=== PATIENT | male | born 1955 | race Caucasian/White ===

== ENCOUNTER 2020-01-20 06:54 | Day surgery (SDC) | payer MEDICARE, OTHER ==
[2020-01-20] MEDS ORDERED: Lidocaine 1% 6 ML ONE (06:58)
[2020-01-20] MEDS ORDERED: Lactated Ringers 1,000 ML ONE (06:58)
[2020-01-20] MEDS ORDERED: Propofol 200 MG/20 ML SDV ONE (06:59)
[2020-01-20] MEDS ORDERED: fentaNYL 100 MCG/2 ML SDV ONE (06:59)
[2020-01-20] MEDS ORDERED: Lactated Ringers 1,000 ML IV SCH (07:00)
[2020-01-20] MEDS ORDERED: Lidocaine 1%/Sod Bicarbonate in NS 8.4% 1 ML Syringe IDERM PRN (07:00)
[2020-01-20] MEDS ORDERED: Sodium Chloride 0.9% 10 ML Syringe FLUSH PRN (07:00)
--- NOTE | 2020-01-20 07:19 | PCM.PREANE ---
Preanesthetic Assessment - Anesthesia/Transfusion/Family Hx Anesthesia History: Prior Anesthesia Without Reaction Family History of Anesthesia Reaction: No Transfusion History: No Prior Transfusion(s) Intubation History: Unknown - Review of Systems General: No Symptoms Pulmonary: No Symptoms (Smoker: less than 1ppd for 5 years. Quit: 1979) Cardiovascular: No Symptoms Gastrointestinal: No Symptoms Neurological: No Symptoms Other: Reports: None, Easy Bruising - Physical Assessment NPO Status Date: 01/20/20 NPO Status Time: 04:00 Vital Signs: HR: 57 B/P: 130/65 Sat: 97% Resp: 16 Temp: 98 Height: 1.91 m Weight: 93.894 kg ASA Class: 2 Mental Status: Alert & Oriented x3 Airway Class: Mallampati = 2 Dentition: Reports: Normal Dentition, Somers(s), Caries Thyro-Mental Finger Breadths: 3 Mouth Opening Finger Breadths: 3 ROM/Head Extension: Full Lungs: Clear to Auscultation, Normal Respiratory Effort Cardiovascular: No Murmurs, Irregular Rhythm - Lab Values: All labs reviewed and noted and within acceptable ranges to proceed with scheduled procedure. - Imaging/EKG Impressions: EKG: SB rate=54, PVC's, Borderline LAD. - Allergies Allergies/Adverse Reactions: Allergies Allergy/AdvReac Type Severity Reaction Status Date / Time No Known Allergies Allergy Verified 01/19/20 14:53 - Anesthesia Plan Pre-Op Medication Ordered: None - Acknowledgements Anesthesia Type Planned: MAC Pt an Appropriate Candidate for the Planned Anesthesia: Yes Alternatives and Risks of Anesthesia Discussed w Pt/Guardian: Yes Pt/Guardian Understands and Agrees with Anesthesia Plan: Yes PreAnesthesia Questionnaire HEENT History: Reports: Other (See Below) Other HEENT History: acute pharyngitis Cardiovascular History: Reports: Other (See Below) Other Cardiovascular History: irregular heart rhythm Respiratory History: Reports: None Gastrointestinal History: Reports: None Genitourinary History: Reports: Other (See Below) Other Genitourinary History: kidney stones COMMERCIAL DEVELOPMENT MANAGER History: Reports: None Musculoskeletal History: Reports: Other (See Below) Other Musculoskeletal History: knee surgery Neurological History: Reports: None Psychiatric History: Reports: None Hematologic History: Reports: None Immunologic History: Reports: None Oncologic (Cancer) History: Reports: None Dermatologic History: Reports: None - Infectious Disease History Infectious Disease History: Reports: None - Past Surgical History Head Surgeries/Procedures: Reports: None HEENT Surgical History: Reports: None Cardiovascular Surgical History: Reports: None Respiratory Surgical History: Reports: None GI Surgical History: Reports: Colonoscopy Male Surgical History: Reports: Vasectomy Endocrine Surgical History: Reports: None Neurological Surgical History: Reports: None Musculoskeletal Surgical History: Reports: None Oncologic Surgical History: Reports: None Dermatological Surgical History: Reports: None - SUBSTANCE USE Smoking Status *Q: Never Smoker Recreational Drug Use History: No - HOME MEDS Home Medications: Home Meds Cholecalciferol (Vitamin D3) [Vitamin D3] 2,000 unit PO DAILY 01/19/20 [History] - CURRENT (IN HOUSE) MEDS Current Meds: Current Medications Lactated Ringer's (Ringers, Lactated) 1,000 mls @ 125 mls/hr IV ASDIRECTED MIGUEL Stop: 01/20/20 23:00 Lidocaine/Sodium Bicarbonate (Buffered Lidocaine 1% In Ns 8.4%) 0.25 ml IDERM ONETIME PRN PRN Reason: Prior to IV Start Stop: 01/20/20 18:00 Sodium Chloride (Saline Flush) 10 ml FLUSH ASDIRECTED PRN PRN Reason: Keep Vein Open Stop: 01/20/20 18:00 Discontinued Medications Fentanyl (Sublimaze) Confirm Administered Dose 100 mcg .ROUTE .STK-MED ONE Stop: 01/20/20 07:00 Lidocaine HCl (Xylocaine-Mpf 1%) Confirm Administered Dose 6 mls @ as directed .ROUTE .STK-MED ONE Stop: 01/20/20 06:59 Lactated Ringer's (Ringers, Lactated) Confirm Administered Dose 1,000 mls @ as directed .ROUTE .STK-MED ONE Stop: 01/20/20 06:59 Propofol (Diprivan 20 Ml) Confirm Administered Dose 400 mg .ROUTE .STK-MED ONE Stop: 01/20/20 07:00
--- NOTE | 2020-01-20 08:37 | PCM.PRNOTE ---
- Free Text/Narrative Note: Date: 01/20/2020 Procedure: screening colonoscopy Findings: fair prep. Ileocecal valve and appendiceal orifice visualized. Very tight turn at rectosigmoid junction. Diverticular disease. Single small polyp in proximal rectum identified. Detailed Report: The patient was taken to the endoscopy suite and placed in left lateral decubitus position. Time out was performed and monitored anesthesia care initiated. The anus appeared normal. Digital rectal exam was unremarkable. The colonoscope was inserted and advanced to the cecum. It was difficult to navigate the rectosigmoid junction due to a very tight turn, and there was some minor scope trauma sustained during this portion of the procedure. The appendiceal orifice and ileocecal valve were visualized. The prep was fair. On slow withdrawal of the scope, the mucosal surfaces were carefully inspected. There was diverticular disease concentrated in the sigmoid colon. A small polyp was identified and biopsied with hot forceps at the proximal rectum. No abnormalities were noted on retroflexion. Air was evacuated and the scope completely withdrawn. The patient tolerated the procedure well. Troy Pringle MD General Surgery
--- NOTE | 2020-01-20 08:38 | PCM48HPAN ---
Post Anesthesia Note - EVALUATION WITHIN 48HRS OF ANESTHETIC Vital Signs in Normal Range: Yes Patient Participated in Evaluation: Yes Respiratory Function Stable: Yes Airway Patent: Yes Cardiovascular Function Stable: Yes Hydration Status Stable: Yes Pain Control Satisfactory: Yes Nausea and Vomiting Control Satisfactory: Yes Mental Status Recovered: Yes Vital Signs: Last Vital Signs Temp 36.6 C 01/20/20 08:33 Pulse 58 L 01/20/20 08:33 Resp 16 01/20/20 08:33 BP 85/58 L 01/20/20 08:33 Pulse Ox 95 01/20/20 08:33
[2020-01-20 09:17] VITALS: BP 110/70; PULSE 59
== END 2020-01-20 09:03 | disposition home or self-care (01) ==
LOC: JD.SDS 06:54
PROVIDERS: ATTEND Surgery
DX: Z12.11 Encounter for screening for malignant neoplasm of colon (principal); D12.8 Benign neoplasm of rectum; K57.30 Diverticulosis of large intestine without perforation or abscess without bleeding; E66.3 Overweight; Z87.891 Personal history of nicotine dependence; Z68.26 Body mass index [BMI] 26.0-26.9, adult; Z79.899 Other long term (current) drug therapy
CPT/HCPCS: 45384; J2001; J2704; J3010; J7120; 00812

== ENCOUNTER 2022-09-08 00:15 | Emergency (ER) | payer MEDICARE, BC ==
[2022-09-08 00:41] VITALS: BP 161/101; PULSE 63
[2022-09-08] MEDS ORDERED: Ketorolac 15 MG/ML SDV IVPUSH ONE (01:17)
[2022-09-08] MEDS ORDERED: Morphine 2 MG/ML SYRINGE IVPUSH PRN (01:27)
[2022-09-08] MEDS ORDERED: Sodium Chloride 0.9% 10 ML Syringe FLUSH PRN (01:27)
[2022-09-08] MEDS ORDERED: Sodium Chloride 0.9% 1,000 ML IV ONE (04:03)
== END 2022-09-08 06:46 | disposition home or self-care (01) ==
LOC: JD.ED 00:15
DX: N20.1 Calculus of ureter (principal); Z79.899 Other long term (current) drug therapy
CPT/HCPCS: 36415; 74176; 80053; 81001; 85025; 96374; 96375; 99284; J1885; J2270; J3490

== ENCOUNTER 2023-02-11 10:47 | Emergency (ER) | payer MEDICARE, BC ==
[2023-02-11] MEDS ORDERED: Ondansetron 4 MG/2 ML SDV IVPUSH ONE (11:08)
[2023-02-11] MEDS ORDERED: Sodium Chloride 0.9% 1,000 ML IV ONE (11:08)
[2023-02-11 11:13] LABS: BASOPHILS ABSOLUTE AUTO 0.01 K/mm3 (0.01-0.08); BASOPHILS PERCENT AUTO 0.1 % (0.1-1.2); EOSINOPHILS ABSOLUTE AUTO 0.09 K/mm3 (0.04-0.54); HEMATOCRIT 44.3 % (40.1-51.0); HEMOGLOBIN 14.9 gm/dl (13.7-17.5); IMMATURE GRAN ABSOLUTE AUTO 0.02 K/mm3 (0.00-0.10); IMMATURE GRAN PERCENT AUTO 0.2 % (<=1.0); LYMPHOCYTES ABSOLUTE AUTO 0.72 K/mm3 (1.32-3.57); LYMPHOCYTES PERCENT AUTO 7.7 % (21.8-53.1); MEAN CORPUSCULAR HEMOGLOBIN 29.9 pg (25.7-32.2); MEAN CORPUSCULAR HGB CONC 33.6 g/dl (32.2-35.5); MEAN PLATELET VOLUME 8.5 fl (9.4-12.3); MONOCYTES ABSOLUTE AUTO 0.48 K/mm3 (0.30-0.82); MONOCYTES PERCENT AUTO 5.1 % (5.3-12.2); NEUTROPHILS ABSOLUTE AUTO 8.02 K/mm3 (1.78-5.38); NEUTROPHILS PERCENT AUTO 85.9 % (34.0-67.9); PLATELET COUNT,PLT 205 K/mm3 (163-337); RED BLOOD CELL COUNT 4.98 M/mm3 (4.63-6.08); WHITE BLOOD CELL COUNT,WBC 9.34 K/mm3 (4.23-9.07)
[2023-02-11 11:30] LABS: APPEARANCE,URINE CLEAR (Clear); BILIRUBIN,URINE NEGATIVE (Negative); COLOR,URINE YELLOW (Yellow); GLUCOSE,URINE NEGATIVE (Negative); KETONES,URINE NEGATIVE (Negative); LEUKOCYTE ESTERASE,URINE NEGATIVE (Negative); NITRITE,URINE NEGATIVE (Negative); OCCULT BLOOD,URINE NEGATIVE (Negative); PH,URINE 7.5 (5.0-8.0); PROTEIN,URINE 1+ (Negative); UROBILINOGEN,URINE 0.2 (0.2-1.0)
[2023-02-11] MEDS ORDERED: Iopamidol 612 MG/ML 100 ML Bottle IVPUSH ONE (11:30)
[2023-02-11 11:33] LABS: ALBUMIN 3.5 g/dl (3.4-5.0); ANION GAP 13.5 (5-15); BILIRUBIN TOTAL 0.8 mg/dL (0.2-1.0); BUN/CREATININE RATIO 16.9 (14-18); CALCIUM 8.1 mg/dL (8.5-10.1); CREATININE 1.3 mg/dL (0.7-1.3); POTASSIUM,K 4.5 mEq/L (3.5-5.1)
[2023-02-11 11:43] LABS: AMORPHOUS SEDIMENT,URINE FEW /hpf (NOT SEEN); BACTERIA,URINE MODERATE /hpf (FEW); MUCUS,URINE NOT SEEN /hpf (FEW); RBC,URINE 0-5 /hpf (0-5); SQUAMOUS EPITHELIAL CELLS,UR 0-5 /hpf (0-5); WBC,URINE 0-5 /hpf (0-5)
[2023-02-11 11:57] LABS: A/G RATIO 0.9 (1-2); PROTEIN TOTAL,TP 7.4 g/dl (6.4-8.2)
[2023-02-11 14:45] VITALS: BP 123/86; PULSE 60
== END 2023-02-11 13:17 | disposition home or self-care (01) ==
LOC: JD.ED 10:47
DX: A08.4 Viral intestinal infection, unspecified (principal)
CPT/HCPCS: 36415; 74177; 80053; 81001; 85025; 96361; 96374; 99284; J2405; J7030; Q9967

== ENCOUNTER 2024-07-22 08:39 | Day surgery (SDC) | payer MEDICARE ==
[~2024-07-22 08:39] MED LIST: HYDROmorphone 0.5 MG/0.5 ML Syringe IVPUSH PRN; Ondansetron 4 MG/2 ML SDV IVPUSH PRN; Sodium Chloride 0.9% 10 ML Syringe FLUSH PRN; Sodium Chloride 0.9% 10 ML Syringe FLUSH SCH; fentaNYL 100 MCG/2 ML SDV IVPUSH PRN
[2024-07-22] MEDS: Lactated Ringers 1,000 ML IV SCH (09:00)
[2024-07-22] MEDS ORDERED: Propofol 200 MG/20 ML SDV ONE ×2 (09:49→09:51)
[2024-07-22] MEDS ORDERED: Midazolam 1 MG/ML 2 ML SDV ONE (09:49)
[2024-07-22] MEDS ORDERED: Lidocaine 1% 4 ML ONE (09:49)
[2024-07-22] MEDS ORDERED: fentaNYL 100 MCG/2 ML SDV ONE (09:49)
[2024-07-22 11:30] VITALS: BP 124/82; PULSE 68
== END 2024-07-22 11:25 | disposition home or self-care (01) ==
LOC: JD.SDS 08:39
PROVIDERS: ATTEND Surgery
DX: Z12.11 Encounter for screening for malignant neoplasm of colon (principal); K57.30 Diverticulosis of large intestine without perforation or abscess without bleeding; K21.9 Gastro-esophageal reflux disease without esophagitis; E61.1 Iron deficiency; Z87.891 Personal history of nicotine dependence; Z80.0 Family history of malignant neoplasm of digestive organs
CPT/HCPCS: 43239; 45378; J2250; J2704; J3010; J7120; 00813; J3490